=== PATIENT | male | born 1960 | race African-American/Black ===

== ENCOUNTER 2018-05-03 13:51 | Emergency (ER) | payer BC ==
[~2018-05-03] VITALS: Ht 172.7 cm; Wt 81.2 kg
[2018-05-03] MEDS ORDERED: ASPIR 8181 MG PO ×2 (13:58)
[2018-05-03 14:47] LABS: ABSOLUTE NEUTROPHILS 4.7 thou/uL (1.4-8.2); BASOPHILS 0.8 % (0.0-2.0); EOSINOPHILS 1.4 % (0.0-3.0); HEMATOCRIT 45.1 % (42.0-52.0); HEMOGLOBIN 15.3 gm/dL (14.0-18.0); MCH 28.9 pg (26.0-34.0); MCHC 33.9 g/dL (28.0-37.0); MCV 85.2 fL (80.0-100.0); MONOCYTES 5.9 % (1.0-8.0); PLATELET COUNT 260 thou/uL (150-400); POLYS 79.9 % (36.0-66.0); RDW 13.4 % (10.5-14.5); WBC 5.9 thou/uL (4.0-11.0)
[2018-05-03 14:49] LABS: CALCIUM 9.4 mg/dL (8.5-10.1); CREATININE 1.9 mg/dL (0.7-1.3); POTASSIUM 3.9 mmol/L (3.5-5.1)
[2018-05-03 15:11] LABS: APTT 27.5 Seconds (24.5-32.8); PROTIME 10.6 Seconds (9.3-11.4)
[2018-05-03] MEDS ORDERED: SENNA8.6 MG PO ×2 (16:30)
[2018-05-03] MEDS ORDERED: ANUSOL-HC25 MG RECTAL ×2 (16:30)
[2018-05-03 17:16] VITALS: BP 185/112
== END 2018-05-03 17:17 | disposition home or self-care (01) ==
LOC: ER 13:51
PROVIDERS: Physician Assistant
DX: K64.9 Unspecified hemorrhoids (principal); I10 Essential (primary) hypertension; E78.5 Hyperlipidemia, unspecified; Z88.0 Allergy status to penicillin

== ENCOUNTER 2018-05-03 18:01 | Inpatient (IN) | payer BC ==
[2018-05-03] VITALS (14 sets, daily range): BP systolic 148–205; BP diastolic 74–114
[~2018-05-03] VITALS: Ht 172.7 cm; Wt 75.3 kg
--- NOTE | ~2018-05-03 | EKG ---
[facility] [email or web address] [place] [address] ELECTROCARDIOGRAM REPORT Name: LANDONHARJEET Room #: NAS Uribe#: [id number] Admission: 05/03/18 Attend Phys: Discharge: Date of : 58 Report #: [id number] THIS REPORT FOR: //name// [facility] ED Test Date: 2018-05-03 Test Time: 18:10:32 Pat Name: HARJEET NAVARRETE Department: Room: Gender: M Babbitter: DENNIS : 1960 Requested By: Thaddeus Schulz Order Number: [id number] MD: Measurements Intervals [place] Rate: 83 P: 72 MS: 134 QRS: 41 QRSD: 97 T: 56 QT: 403 QTc: 474 Interpretive Statements Sinus rhythm Left atrial enlargement RSR' in V1 or V2, right VCD or RVH Left ventricular hypertrophy ST elevation, consider anterior injury No previous ECG available for comparison [email or web address] By: 09 09 Bia Amezquita MD /EPI
--- NOTE | ~2018-05-03 | PATH ---
[facility] [address] [place] [address] PATHOLOGY RPT PROCEDURE Name: JOSE ALBERTO MISTRY Room #: 456-P DIS IN M.R.#: [id number] Admission: 05/03/18 Date of : 58 Discharge: 05/06/18 Report #: [id number] Path Case #: [id number] [facility] Accession Number: [id number] . 01 Material submitted: . BIOPSY OF ANTRUM TO R/O H. PYLORI . 01 Clinical history: . GI bleed . 02 Diagnosis: Gastric mucosa, antrum to rule out H. pylori, endoscopic biopsy: - Helicobacter pylori induced moderate active gastritis. - Negative for intestinal metaplasia or atrophy or dysplasia. - Properly controlled Helicobacter pylori immunohistochemical stain performed to show moderate number of organisms. (IUV:pit 05/08/2018) QTP/05/08/2018 . 02 Electronically signed: . Margaux Mallory MD, Pathologist NPI- [id number] . 01 Gross description: . Received in formalin labeled "Jose Alberto Mistry, BX of antrum to rule out H. pylori," is a single segment of gonsales soft tissue measuring 0.6 cm in maximum dimension. The specimen is entirely submitted in cassette A1. (TSD; 05/05/2018) TOB/TOB . 02 Pathologist provided ICD-10: K29.70, B96.81 . 02 CPT . 927550, N41999 Specimen Comment: A courtesy copy of this report has been sent to Specimen Comment: [phone], . Specimen Comment: Report sent to / DR ARCHULETA Performed at: [address], [place] [id number] MD Markel Womack MD Phone: [phone] Performed at: [address] [id number] MD Margaux Mallory MD Phone: [phone]
[~2018-05-03 18:01] MED LIST: ANUSOL-HC25 MG RECTAL; ASPIR 8181 MG PO; SENNA8.6 MG PO
[2018-05-03 18:18] LABS: ABSOLUTE NEUTROPHILS 7.1 thou/uL (1.4-8.2); BASOPHILS 0.5 % (0.0-2.0); EOSINOPHILS 0.3 % (0.0-3.0); HEMATOCRIT 38.3 % (42.0-52.0); LYMPHOCYTES 12.8 % (24.0-44.0); MCHC 32.7 g/dL (28.0-37.0); MCV 85.7 fL (80.0-100.0); MONOCYTES 5.6 % (1.0-8.0); PLATELET COUNT 287 thou/uL (150-400); POLYS 80.8 % (36.0-66.0); RBC 4.46 mil/uL (4.50-6.00); WBC 8.7 thou/uL (4.0-11.0)
[2018-05-03 18:23] LABS: HEMOGLOBIN 12.5 gm/dL (14.0-18.0)
[2018-05-03 21:40] LABS: HEMATOCRIT 33.3 % (42.0-52.0); HEMOGLOBIN 11.2 gm/dL (14.0-18.0)
[2018-05-04] VITALS (44 sets, daily range): BP systolic 129–202; BP diastolic 72–106
[2018-05-04 00:18] LABS: HEMATOCRIT 33.7 % (42.0-52.0); HEMOGLOBIN 11.3 gm/dL (14.0-18.0)
[2018-05-04 00:23] LABS: ANION GAP 10 mmol/L (7-16); BUN 20 mg/dL (7-18); CHLORIDE 109 mmol/L (98-107); CO2 23 mmol/L (21-32); CREATININE 1.5 mg/dL (0.7-1.3); GLUCOSE 116 mg/dL (74-106); POTASSIUM 4.1 mmol/L (3.5-5.1); SODIUM 142 mmol/L (136-145)
[2018-05-04 00:25] LABS: CALCIUM 7.3 mg/dL (8.5-10.1)
[2018-05-04 00:29] LABS: CHOLESTEROL 150 mg/dL (<200); HDL CHOLESTEROL 37 mg/dL (>40); LDL CHOLESTEROL 106 mg/dL (<100); TC:HDL 4.1 Ratio (Not establshd); TRIGLYCERIDE 39 mg/dL (<150); VLDL 8 mg/dL (<40)
[2018-05-04 05:17] LABS: HEMATOCRIT 31.7 % (42.0-52.0); HEMOGLOBIN 10.4 gm/dL (14.0-18.0); MCH 28.5 pg (26.0-34.0); MCHC 32.8 g/dL (28.0-37.0); RBC 3.64 mil/uL (4.50-6.00); RDW 13.3 % (10.5-14.5); WBC 7.6 thou/uL (4.0-11.0)
[2018-05-04 05:26] LABS: CALCIUM 7.5 mg/dL (8.5-10.1); CREATININE 1.5 mg/dL (0.7-1.3); POTASSIUM 4.2 mmol/L (3.5-5.1)
[2018-05-04 12:05] LABS: HEMOGLOBIN 10.3 gm/dL (14.0-18.0)
[2018-05-04 18:07] LABS: HEMATOCRIT 32.2 % (42.0-52.0)
[2018-05-05] VITALS (19 sets, daily range): BP systolic 132–174; BP diastolic 63–97
[2018-05-05 06:03] LABS: CALCIUM 8.4 mg/dL (8.5-10.1); CREATININE 1.5 mg/dL (0.7-1.3); MAGNESIUM 1.9 mg/dL (1.8-2.4); POTASSIUM 4.1 mmol/L (3.5-5.1)
[2018-05-06 05:23] VITALS: BP 163/92
[2018-05-06] MEDS ORDERED: PANTOPRAZOLE SO40 M1 PO ×2 (10:03)
[2018-05-06 10:07] VITALS: BP 163/92
[2018-05-06] MEDS ORDERED: NORVASC10 MG PO ×2 (10:20)
== END 2018-05-06 12:06 | disposition home or self-care (01) | DRG 378 ==
LOC: ER 18:01 → EROBS 19:12 → ICU 19:46 → 4W 05-05 12:58
PROVIDERS: Emergency Medicine; Internal Medicine; Nurse Practitioner Family
DX: K29.71 Gastritis, unspecified, with bleeding (principal); D62 Acute posthemorrhagic anemia; K57.31 Diverticulosis of large intestine without perforation or abscess with bleeding; K26.9 Duodenal ulcer, unspecified as acute or chronic, without hemorrhage or perforation; K44.9 Diaphragmatic hernia without obstruction or gangrene; Z60.2 Problems related to living alone; I10 Essential (primary) hypertension; E78.5 Hyperlipidemia, unspecified; Z88.0 Allergy status to penicillin; Z79.82 Long term (current) use of aspirin; Z79.899 Other long term (current) drug therapy; Z28.21 Immunization not carried out because of patient refusal; Z80.0 Family history of malignant neoplasm of digestive organs
CPT/HCPCS: 10045; 10078; 70005